=== PATIENT | male | born 2000 | race Caucasian/White ===

== ENCOUNTER 2023-02-25 21:04 | Emergency (ER) | payer SELFPAY ==
[2023-02-25] MEDS ORDERED: Naproxen 250 MG Tab PO ONE (21:05)
== END 2023-02-25 21:58 | disposition home or self-care (01) ==
LOC: FB.ED 21:04
DX: S60.221A Contusion of right hand, initial encounter (principal); W22.09XA Striking against other stationary object, initial encounter
CPT/HCPCS: 73130-RT; 99282; 99283; A9270-GY